=== PATIENT | female | born 1990 ===

== ENCOUNTER 2020-11-11 03:53 | Emergency (ER) | payer SELFPAY ==
[2020-11-11 04:24] VITALS: BP 97/78
--- NOTE | 2020-11-11 05:03 | Emergency Department Report ---
Upper Extremity - HPI Chief Complaint: Extremity Injury, Upper Stated Complaint: LT HAND INJURY Time Seen by Provider: 11/11/20 05:00 Upper Extremity: Left Hand Occurred When: Today Mechanism: Fall Severity: severe Symptoms: Yes Pain with Movement, Yes Deformity, Yes Limited Range of Movement, Yes Swelling, Yes Bruising/Ecchymosis, No Numbness, No Weakness, No Laceration or Abrasion Other History: Patient is a 30-year-old female who presents emergency room with left hand pain. Patient states her symptoms started 1 hour ago after a fall. Patient states she fell and landed on her left hand. Patient states the pain is 10 out of 10. Patient states the pain is better with rest and worse with movement and palpation. Patient denies other injuries. Patient denies hitting her head. Patient denies loss of conscious. Patient states that her left hand is swollen. Patient states it is difficult to move. Patient states she is not sure when her last tetanus was. Patient states she also has an abrasion to her left hand. Patient denies allergies. Patient denies past medical history. Patient states she her only surgical history is a . Patient states her last menstrual period on of last month. Patient states there is no chance she is . Patient denies recent travel. Patient denies recent international travel. Patient denies exposure to the novel coronavirus. Patient denies sick contacts. Patient denies fever and chills. Patient denies cough. Patient denies diarrhea. Patient denies coming in contact with anybody with symptoms of the novel coronavirus. ED Review of Systems ROS: Stated complaint: LT HAND INJURY Other details as noted in HPI Constitutional: denies: chills, fever Eyes: denies: eye pain, eye discharge, vision change ENT: denies: ear pain, throat pain Respiratory: denies: cough, shortness of breath, wheezing Cardiovascular: denies: chest pain, palpitations Endocrine: no symptoms reported Gastrointestinal: denies: abdominal pain, nausea, diarrhea Genitourinary: denies: urgency, dysuria, discharge Musculoskeletal: as per HPI. denies: back pain, joint swelling, arthralgia Skin: denies: rash, lesions Neurological: denies: headache, weakness, paresthesias Psychiatric: denies: anxiety, depression Hematological/Lymphatic: denies: easy bleeding, easy bruising ED Past Medical Hx - Past Medical History Previous Medical History?: No - Surgical History Past Surgical History?: No - Family History Family history: no significant - Social History Smoking Status: Never Smoker Substance Use Type: None Upper Extremity Exam - Exam General: Vital signs noted. No distress. Alert and acting appropriately. Head and Torso: No HEENT Abnormality, No Neck Tenderness, No Chest/Lungs Abnormality, No Abdominal Tenderness, No Back Tenderness Shoulder Exam: Yes Normal Range of Motion in Shoulder, No Shoulder Tenderness, No Clavicle Tenderness, No Shoulder Deformity, No AC Joint Tenderness Arm Exam: No Arm/Humerus Tenderness, No Arm Deformity Elbow: No Elbow Tenderness, No Normal Range of Motion in Elbow, No Elbow Deformity Forearm: No Forearm Tenderness, No Forearm Deformity, No Pain with Pronation, No Pain with Supination Wrist: Yes Normal ROM in Wrist, No Wrist Tenderness, No Wrist Deformity, No Snuffbox Tenderness, No Pain with Axial Thumb Compression Hand: Yes Hand Tenderness (Left), Yes Hand Deformity (Left), Yes Normal ROM in Digit(s), No Digit Tenderness, No Digit(s) Deformity, No Tendon Dysfunction CMS Exam: Yes Broken Skin (Abrasion to the left lateral dorsal hand.), No Normal Distal Pulses, No Normal Capillary Refill, No Normal Distal Sensation ED Course Vital Signs 11/11/20 04:24 Temperature 98.3 F Pulse Rate 70 Respiratory 18 Rate Blood Pressure 97/78 [Right] O2 Sat by Pulse 100 Oximetry - Reevaluation(s) Reevaluation #1: I discussed all results and clinical findings with patient. I discussed plan of care with patient. Patient agrees with plan of care. Patient is stable for discharge. Patient will be discharged home. Patient given discharge instructions. Patient voiced understanding of discharge instructions. 11/11/20 05:26 ED Medical Decision Making - Radiology Data Radiology results: report reviewed, image reviewed interpreted by me: Left hand x-ray: No fracture, no acute findings, soft tissue swelling noted.. XR hand 3+V LT INDICATION: fall. Left hand pain COMPARISON: No relevant prior imaging study available. FINDINGS: No acute skeletal abnormality. There is dorsal soft tissue swelling. No foreign bodies. IMPRESSION: 1. Dorsal soft tissue swelling, no fracture is seen. - Medical Decision Making Patient is a 30-year-old female with complaints of swelling and hand pain and hand abrasion after a fall. Patient states he had had an x-ray done which was essentially unremarkable. I personally reviewed the stable for discharge. Patient for any further emergency medical services. Patient not require any inpatient services. Patient stable for discharge. Patient discharged home. - Differential Diagnosis Sprain, strain, fracture, hand pain. Abrasion Critical care attestation.: If time is entered above; I have spent that time in minutes in the direct care of this critically ill patient, excluding procedure time. ED Disposition Clinical Impression: Hand pain, left Contusion of left hand Qualifiers: Encounter type: initial encounter Qualified Code(s): S60.222A - Contusion of left hand, initial encounter Abrasion of left hand Qualifiers: Encounter type: initial encounter Qualified Code(s): S60.512A - Abrasion of left hand, initial encounter Disposition: 01 HOME / SELF CARE / HOMELESS Is pt being admited?: No Does the pt Need Aspirin: No Condition: Stable Instructions: Hand Pain, Hand Contusion, Abrasion Additional Instructions: Patient to follow-up with primary care in 2 to 3 days. Patient to follow-up with orthopedist in 2 to 3 days. Keep left hand clean and dry. Patient to rest. Patient to increase water. Patient to avoid strenuous exercise or heavy lifting until cleared by orthopedist. Patient to take Tylenol or ibuprofen as needed for pain. Patient to take meds as directed. Patient to return to the ER if condition worsens, changes or new symptoms arise. Referrals: UCHE PURCELL MD [Staff Physician] - 2-3 Days Time of Disposition: 05:46
[2020-11-11] MEDS ORDERED: TETANUS,DIPH,PERTUSS(ACELL) VACCINE 0.5 ML SYRINGE IM ONE (05:30)
--- NOTE | 2020-11-11 05:31 | XRay Report ---
XR hand 3+V LT INDICATION: fall. Left hand pain COMPARISON: No relevant prior imaging study available. FINDINGS: No acute skeletal abnormality. There is dorsal soft tissue swelling. No foreign bodies. IMPRESSION: 1. Dorsal soft tissue swelling, no fracture is seen. Signer Name: Phoenix Espinoza MD Signed: 11/11/2020 5:26 AM Workstation Name: [id number]
== END 2020-11-11 06:48 | disposition home or self-care (01) ==
LOC: ED 03:53
DX: S60.222A Contusion of left hand, initial encounter (principal); Z98.890 Other specified postprocedural states; W18.39XA Other fall on same level, initial encounter; Y93.89 Activity, other specified; Y92.89 Other specified places as the place of occurrence of the external cause; Y99.8 Other external cause status
CPT/HCPCS: 90471; 90715; 99283